=== PATIENT | male | born 1990 ===

== ENCOUNTER 2016-10-16 11:11 | Emergency (ER) | payer MEDICAID ==
[2016-10-16 11:13] VITALS: TEMP 98.6; BMI 22.3
[2016-10-16 11:48] VITALS: PULSE 82
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
--- NOTE | 2016-10-16 12:26 | ED PDOC ---
Lower Extremity Pain/Injury Time Seen by Provider: 10/16/16 11:22 Chief Complaint (Nursing): Lower Extremity Problem/Injury Chief Complaint (Provider): RIGHT ANKLE PAIN History Per: Patient (26 Y/O MALE WITH RECENT ORIF YESTERDAY AND D/C WITH VICODIN/ASA. PATIENT STATES NERVE BLOCK WORE OFF HAS HAD EXCRUCIATING PAIN. TOOK VICODIN/ASA PRIOR 1 HOUR PRIOR TO ED ARRIVAL.) Past Medical History Reviewed: Historical Data, Nursing Documentation, Vital Signs Vital Signs: Last Vital Signs Temp 98.6 F 10/16/16 11:44 Pulse 82 10/16/16 11:44 Resp 20 10/16/16 11:44 BP 119/65 10/16/16 11:44 Pulse Ox 100 10/16/16 11:44 - Medical History PMH: Denies: Chronic Kidney Disease - Family History Family History: States: Unknown Family Hx - Home Medications Home Medications: Ambulatory Orders Medication Instructions Recorded Aspirin [Adult Low Dose Aspirin EC] 81 mg PO DAILY #60 tablet. 10/15/16 Clindamycin [Cleocin] 300 mg PO Q6 #28 cap 10/15/16 Docusate [Colace] 100 mg PO BID #20 cap 10/16/16 Ondansetron [Zofran Odt] 4 mg PO Q8 PRN #8 odt 10/16/16 - Allergies Allergies/Adverse Reactions: Allergies Allergy/AdvReac Type Severity Reaction Status Date / Time Penicillins Allergy RASH Verified 10/14/16 14:51 Review of Systems ROS Statement: Except As Marked, All Systems Reviewed And Found Negative Physical Exam - Reviewed Nursing Documentation Reviewed: Yes Vital Signs Reviewed: Yes - Physical Exam Appears: Positive for: Well, Non-toxic, No Acute Distress Head Exam: Positive for: ATRAUMATIC, NORMAL INSPECTION, NORMOCEPHALIC Skin: Positive for: Normal Color, Warm, DRY Eye Exam: Positive for: EOMI, Normal appearance, PERRL ENT: Positive for: Normal ENT Inspection Neck: Positive for: Normal, Painless ROM Cardiovascular/Chest: Positive for: Regular Rate, Rhythm Respiratory: Positive for: CNT, Normal Breath Sounds Gastrointestinal/Abdominal: Positive for: Normal Exam, Bowel Sounds, Soft Back: Positive for: Normal Inspection Extremity: Positive for: Normal ROM, Other (PATIENT IN POSTERIOR SPLINT. ABLE TO MOVES TOES; GOOD CAPILLARY REFILL) Neurologic/Psych: Positive for: Alert, Oriented - ECG O2 Sat by Pulse Oximetry: 100 - Progress ED Course And Treament: D/W PODIATRY RESIDENT. SPLINT ADJUSTED IN ED. PATIENT TO BE D/C HOME CONTINUE ON VICODIN Disposition - Clinical Impression Clinical Impression: Ankle fracture - Patient ED Disposition Is Patient to be Admitted: No - Disposition Disposition: Routine/Home Disposition Time: 13:54 Condition: FAIR Prescriptions: Docusate [Colace] 100 mg PO BID #20 cap Ondansetron [Zofran Odt] 4 mg PO Q8 PRN #8 odt PRN Reason: Nausea/Vomiting Instructions: Ankle Fracture (ED)
[2016-10-16 14:32] VITALS: BP 118/58; RESP 18; O2SAT 99
== END 2016-10-16 14:32 | disposition home or self-care (01) ==
LOC: H.ER 11:11
DX: M25.571 Pain in right ankle and joints of right foot (principal)

== ENCOUNTER 2017-06-08 19:55 | Emergency (ER) | payer SELFPAY ==
[2017-06-08 19:56] VITALS: BMI 22.3
[2017-06-08 20:17] VITALS: BP 110/64; PULSE 78; RESP 16; TEMP 97.5; O2SAT 99
--- NOTE | 2017-06-08 20:18 | ED PDOC ---
HPI: Abdomen Time Seen by Provider: 06/08/17 20:08 Chief Complaint (Nursing): GI Problem Chief Complaint (Provider): vomiting History Per: Patient Additional Complaint(s): 26 yo male, denies any PMH, presents to ED with complaints of vomiting since this am. Pt admits to drinking heavily yesterday, till about 4 am. Denies fever , diarrhea. Past Medical History Reviewed: Nursing Documentation, Vital Signs Vital Signs: Last Vital Signs Temp 97.5 F L 06/08/17 20:07 Pulse 78 06/08/17 20:07 Resp 16 06/08/17 20:07 BP 110/64 06/08/17 20:07 Pulse Ox 99 06/08/17 21:02 - Medical History PMH: Denies: Chronic Kidney Disease Other PMH: WPW s/p Ablation - Surgical History Other surgeries: wrist and ankle ORIF - Family History Family History: States: Unknown Family Hx - Living Arrangements Living Arrangements: With Family - Social History Current smoker - smoking cessation education provided: No Alcohol: Social Drugs: Denies - Home Medications Home Medications: Ambulatory Orders Medication Instructions Recorded Aspirin [Adult Low Dose Aspirin EC] 81 mg PO DAILY #60 tablet. 10/15/16 Clindamycin [Cleocin] 300 mg PO Q6 #28 cap 10/15/16 Docusate [Colace] 100 mg PO BID #20 cap 10/16/16 Ondansetron [Zofran Odt] 4 mg PO Q8 PRN #8 odt 10/16/16 Ondansetron ODT [Zofran ODT] 4 mg PO Q6 PRN #10 odt 06/08/17 - Allergies Allergies/Adverse Reactions: Allergies Allergy/AdvReac Type Severity Reaction Status Date / Time Penicillins Allergy RASH Verified 06/08/17 20:06 Review of Systems ROS Statement: Except As Marked, All Systems Reviewed And Found Negative Gastrointestinal: Positive for: Nausea, Vomiting, Abdominal Pain Physical Exam - Reviewed Nursing Documentation Reviewed: Yes Vital Signs Reviewed: Yes - Physical Exam Appears: Positive for: Well, Non-toxic, No Acute Distress Head Exam: Positive for: ATRAUMATIC, NORMAL INSPECTION, NORMOCEPHALIC Skin: Positive for: Normal Color, Warm, DRY Eye Exam: Positive for: EOMI, Normal appearance, PERRL ENT: Positive for: Normal ENT Inspection Neck: Positive for: Normal, Painless ROM Cardiovascular/Chest: Positive for: Regular Rate, Rhythm Respiratory: Positive for: CNT, Normal Breath Sounds Gastrointestinal/Abdominal: Positive for: Normal Exam, Bowel Sounds, Soft Back: Positive for: Normal Inspection Extremity: Positive for: Normal ROM Neurologic/Psych: Positive for: Alert, Oriented - Laboratory Results Result Diagrams: 06/08/17 21:08 06/08/17 21:08 - ECG O2 Sat by Pulse Oximetry: 99 Medical Decision Making Medical Decision Making: IV access established and treatment initiated with IVF and Zofran Diagnostics ordered labs resulted and reviewed with pt who demonstrated full understanding Supportive care methods discussed after Pt tolerated Po and reported feeling better, asking ot leave Disposition - Clinical Impression Clinical Impression: Hangover effect - Patient ED Disposition Is Patient to be Admitted: No - Disposition Disposition: Routine/Home Disposition Time: 23:58 Condition: STABLE Prescriptions: Ondansetron ODT [Zofran ODT] 4 mg PO Q6 PRN #10 odt PRN Reason: Nausea/Vomiting Instructions: Acute Nausea and Vomiting (ED) Forms: [employer] ([place]an)
[2017-06-08] MEDS ORDERED: Sodium Chloride 0.9% 1,000 ML IV STA (20:20)
[2017-06-08 21:19] LABS: BASO # 0.1 K/uL (0.0-0.2); BASO % 0.5 % (0.0-2.0); HEMATOCRIT 44.2 % (35.0-51.0); LYMPH % 7.6 % (20.0-40.0); MEAN CELL VOLUME 86.1 fl (80.0-94.0); MEAN CORPUSCULAR HEMOGLOBIN 28.9 pg (27.0-31.0); MEAN CORPUSCULAR HGB CONC 33.5 g/dL (33.0-37.0); MEAN PLATELET VOLUME 7.3 fl (7.2-11.7); MONO # 0.5 K/uL (0.0-0.8); MONO % 3.8 % (0.0-10.0); NEUT # 11.3 K/uL (1.8-7.0); NEUT % 88.1 % (50.0-75.0); NRBC % 0.1 % (0.0-0.0); PLATELET COUNT 314 K/uL (130-400); WHITE BLOOD COUNT 12.8 K/uL (4.8-10.8)
[2017-06-08 21:25] LABS: SODIUM 144 mmol/l (132-148)
[2017-06-08 21:33] LABS: ALB/GLOB RATIO 1.3 (1.0-2.1); ALCOHOL SERUM < 10 mg/dl (0-10); ALKALINE PHOSPHATASE 82 U/L (38-126); ALT/SGPT 37 U/L (21-72); AMYLASE 149 U/L (30-110); AST/SGOT 25 U/L (17-59); BILIRUBIN,TOTAL 0.9 mg/dl (0.2-1.3); BLOOD UREA NITROGEN 12 mg/dl (9-20); CALCIUM 9.6 mg/dL (8.4-10.2); CARBON DIOXIDE 25 mmol/L (22-30); CHLORIDE 107 mmol/L (98-107); GFR AFRICAN-AMERICAN > 60; GLUCOSE,RANDOM 96 mg/dL (75-110); LIPASE 20 U/L (23-300); POTASSIUM 4.3 MMOL/L (3.6-5.0); TOTAL PROTEIN 8.2 G/DL (6.3-8.2)
[2017-06-08 21:57] LABS: NEUTROPHIL 88 % (42-75); TOTAL CELLS COUNTED 100
[2017-06-08 23:56] LABS: RBC URINE 4 /hpf (0-3); URINE BACTERIA RARE (<OCC); URINE BILIRUBIN NEGATIVE (NEGATIVE); URINE COLOR YELLOW (YELLOW); URINE GLUCOSE (UA) NEG (Normal); URINE KETONE NEGATIVE (NEGATIVE); URINE LEUKOCYTE ESTERASE NEG Leu/uL (Negative); URINE PROTEIN 100 mg/dL (NEGATIVE); URINE UROBILINOGEN 0.2-1.0 mg/dL (0.2-1.0); WBC URINE 1 /hpf (0-5)
[2017-06-08 23:57] LABS: URINE BLOOD SMALL (NEGATIVE)
== END 2017-06-09 00:01 | disposition home or self-care (01) ==
LOC: H.ER 19:55
DX: R11.2 Nausea with vomiting, unspecified (principal); R10.9 Unspecified abdominal pain; Z88.0 Allergy status to penicillin
CPT/HCPCS: 80053; 81003; 82150; 83690; 85025; 96361; 96374; 99284; G0480; J2405; J7040

== ENCOUNTER 2017-11-03 15:37 | Emergency (ER) | payer MEDICAID ==
[2017-11-03 15:37] VITALS: BMI 22.3
[2017-11-03 15:51] VITALS: TEMP 98
[2017-11-03] MEDS ORDERED: Sodium Chloride 0.9% 1,000 ML IV STA (17:04)
--- NOTE | 2017-11-03 17:08 | ED PDOC ---
HPI: General Adult Time Seen by Provider: 11/03/17 16:06 Chief Complaint (Nursing): Abdominal Pain Chief Complaint (Provider): "dehydration after drinking too much" History Per: Patient History/Exam Limitations: no limitations Onset/Duration Of Symptoms: Hrs Have you had recent travel within the past 21 days to any of the following countries: [place], [place], [place] or [place]?: No Current Symptoms Are (Timing): Better Additional Complaint(s): 27 yo male comes to ER for "dehydration" after drinking too much last night. Pt states that he was nauseous and vomiting this morning. Denies abdominal pain. Pt has been seen numerous times in ER for same. Past Medical History Reviewed: Historical Data, Nursing Documentation, Vital Signs Vital Signs: Last Vital Signs Temp 98 F 11/03/17 15:48 Pulse 74 11/03/17 15:48 Resp 20 11/03/17 15:48 BP Pulse Ox 98 11/03/17 15:48 - Medical History PMH: Fractures (Left wrist and Right Ankle) Denies: Chronic Kidney Disease - Family History Family History: States: Unknown Family Hx - Home Medications Home Medications: Ambulatory Orders Medication Instructions Recorded Aspirin [Adult Low Dose Aspirin EC] 81 mg PO DAILY #60 tablet. 10/15/16 Clindamycin [Cleocin] 300 mg PO Q6 #28 cap 10/15/16 Docusate [Colace] 100 mg PO BID #20 cap 10/16/16 Ondansetron [Zofran Odt] 4 mg PO Q8 PRN #8 odt 10/16/16 Ondansetron ODT [Zofran ODT] 4 mg PO Q6 PRN #10 odt 06/08/17 Ondansetron ODT [Zofran ODT] 4 mg PO QID #20 odt 11/03/17 - Allergies Allergies/Adverse Reactions: Allergies Allergy/AdvReac Type Severity Reaction Status Date / Time Penicillins Allergy RASH Verified 11/03/17 15:48 Review of Systems ROS Statement: Except As Marked, All Systems Reviewed And Found Negative Constitutional: Negative for: Fever, Chills Gastrointestinal: Positive for: Nausea, Vomiting. Negative for: Abdominal Pain , Diarrhea Physical Exam - Reviewed Nursing Documentation Reviewed: Yes Vital Signs Reviewed: Yes - Physical Exam Appears: Positive for: Well, Non-toxic, No Acute Distress Head Exam: Positive for: ATRAUMATIC, NORMAL INSPECTION, NORMOCEPHALIC Skin: Positive for: Normal Color, Warm, DRY Eye Exam: Positive for: EOMI, Normal appearance, PERRL ENT: Positive for: Normal ENT Inspection Neck: Positive for: Normal, Painless ROM Cardiovascular/Chest: Positive for: Regular Rate, Rhythm Respiratory: Positive for: CNT, Normal Breath Sounds Gastrointestinal/Abdominal: Positive for: Normal Exam, Soft. Negative for: Tenderness Back: Positive for: Normal Inspection Extremity: Positive for: Normal ROM Neurologic/Psych: Positive for: Alert, Oriented - ECG O2 Sat by Pulse Oximetry: 98 Medical Decision Making Medical Decision Making: PO zofran given in ER/ PT tolerated fluids. Disposition - Clinical Impression Clinical Impression: Hangover without complication - Patient ED Disposition Is Patient to be Admitted: No Counseled Patient/Family Regarding: Diagnosis, Need For Followup, Rx Given - Disposition Disposition: Routine/Home Disposition Time: 17:07 Condition: STABLE Prescriptions: Ondansetron ODT [Zofran ODT] 4 mg PO QID #20 odt Instructions: Effects of Alcohol on Your Health
[2017-11-03 18:13] VITALS: BP 123/72; PULSE 81; RESP 19; O2SAT 100
== END 2017-11-03 18:17 | disposition home or self-care (01) ==
LOC: H.ER 15:37
DX: F10.129 Alcohol abuse with intoxication, unspecified (principal); Z79.82 Long term (current) use of aspirin; Z88.0 Allergy status to penicillin

== ENCOUNTER 2018-03-11 14:35 | Emergency (ER) | payer MEDICAID, OTHER ==
[2018-03-11 14:35] VITALS: BMI 22.3
[2018-03-11 14:49] VITALS: O2SAT 97
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
--- NOTE | 2018-03-11 16:43 | RAD ---
Date of service: 03/11/2018 HISTORY: LEFT sided rhonchi weakness cough COMPARISON: 07/03/2015 TECHNIQUE: Chest PA and lateral FINDINGS: LUNGS: No active pulmonary disease. PLEURA: No significant pleural effusion identified. No pneumothorax apparent. CARDIOVASCULAR: Normal. OSSEOUS STRUCTURES: No significant abnormalities. VISUALIZED UPPER ABDOMEN: Normal. OTHER FINDINGS: None. IMPRESSION: No active disease. No interval pathology.
[2018-03-11 17:03] LABS: BASO # 0.1 K/uL (0.0-0.2); BASO % 0.4 % (0.0-2.0); EOS # 0.1 K/uL (0.0-0.7); EOS % 0.8 % (0.0-4.0); HEMOGLOBIN 16.3 g/dL (12.0-18.0); LYMPH # 3.2 K/uL (1.0-4.3); LYMPH % 25.4 % (20.0-40.0); MEAN CELL VOLUME 87.2 fl (80.0-94.0); MEAN CORPUSCULAR HGB CONC 34.4 g/dL (33.0-37.0); MEAN PLATELET VOLUME 7.3 fl (7.2-11.7); NEUT # 8.3 K/uL (1.8-7.0); NEUT % 65.4 % (50.0-75.0); RBC 5.45 Mil/uL (4.40-5.90); RED CELL DISTRIBUTION WIDTH 13.3 % (11.5-14.5); WHITE BLOOD COUNT 12.7 K/uL (4.8-10.8)
[2018-03-11 17:15] LABS: ALB/GLOB RATIO 1.1 (1.0-2.1); ALBUMIN 4.6 g/dL (3.5-5.0); ALT/SGPT 26 U/L (21-72); AST/SGOT 22 U/L (17-59); BLOOD UREA NITROGEN 13 mg/dl (9-20); CALCIUM 10.1 mg/dL (8.4-10.2); GFR NON-AFRICAN AMERICAN > 60
[2018-03-11 19:42] VITALS: BP 126/79; PULSE 76; RESP 18; TEMP 98.8
== END 2018-03-11 19:16 | disposition home or self-care (01) ==
LOC: H.ER 14:35
DX: J40 Bronchitis, not specified as acute or chronic (principal); F17.200 Nicotine dependence, unspecified, uncomplicated; Z79.82 Long term (current) use of aspirin; Z79.899 Other long term (current) drug therapy; Z88.0 Allergy status to penicillin

== ENCOUNTER 2018-06-12 20:30 | Emergency (ER) | payer MEDICAID, OTHER ==
[2018-06-12 20:30] VITALS: BMI 22.3
[2018-06-12 22:42] VITALS: BP 124/72; PULSE 83; RESP 16; TEMP 98.5; O2SAT 99
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
== END 2018-06-12 23:12 | disposition home or self-care (01) ==
LOC: H.ER 20:30
DX: J02.9 Acute pharyngitis, unspecified (principal); Z11.3 Encounter for screening for infections with a predominantly sexual mode of transmission; Z79.82 Long term (current) use of aspirin; Z88.0 Allergy status to penicillin

== ENCOUNTER 2018-09-28 00:22 | Emergency (ER) | payer MEDICAID ==
[2018-09-28 00:22] VITALS: BMI 22.3
[2018-09-28 00:58] VITALS: O2SAT 98
--- NOTE | 2018-09-28 02:46 | ED PDOC ---
HPI: Influenza Time Seen by Provider: 09/28/18 02:01 Chief Complaint: Fever Chief Complaint (Provider): sneezing, cough, runny nose, fever History Per: Patient Exam Limitations: no limitations Additional complaint(s):: 28 y/o M with hx of Berman Parkinson White syndrome s/p ablation at age 15 who presents with flu-like symptoms. Pt states that he began sneezing, having nasal congestion, cough and subjective fever with chills last night. He has not taken any medication for fever. Denies SOB, N/V, diarrhea, sore throat or ear pain. + VELASCO. is being seen in ED for similar symptoms and tested + for Influenza. Past Medical History Reviewed: Historical Data, Nursing Documentation, Vital Signs Vital Signs: Last Vital Signs Temp 99.7 F H 09/28/18 00:54 Pulse 73 09/28/18 00:54 Resp 16 09/28/18 00:54 BP 120/80 09/28/18 00:54 Pulse Ox 98 09/28/18 00:54 - Medical History PMH: Fractures (Left wrist and Right Ankle) Denies: Chronic Kidney Disease Other PMH: WPW s/p ablation - Surgical History Other surgeries: ablation for WPW at age 15 - Family History Family History: States: Unknown Family Hx - Immunization History Hx Tetanus Toxoid Vaccination: No Hx Influenza Vaccination: No Hx Pneumococcal Vaccination: No - Home Medications Home Medications: Ambulatory Orders Medication Instructions Recorded Aspirin [Adult Low Dose Aspirin EC] 81 mg PO DAILY #60 tablet. 10/15/16 Clindamycin [Cleocin] 300 mg PO Q6 #28 cap 10/15/16 Docusate [Colace] 100 mg PO BID #20 cap 10/16/16 Ondansetron [Zofran Odt] 4 mg PO Q8 PRN #8 odt 10/16/16 Ondansetron ODT [Zofran ODT] 4 mg PO Q6 PRN #10 odt 06/08/17 Ondansetron ODT [Zofran ODT] 4 mg PO QID #20 odt 11/03/17 Albuterol HFA [Ventolin HFA 90 2 puff IH Q4H PRN #1 inh 03/11/18 mcg/actuation (8 g)] Azithromycin [Zithromax] 250 mg PO DAILY #6 dose 03/11/18 Ibuprofen [Motrin Tab] 600 mg PO Q6 PRN 7 Days tab 09/28/18 Oseltamivir Phosphate [Tamiflu] 75 mg PO BID #9 capsule 09/28/18 - Allergies Allergies/Adverse Reactions: Allergies Allergy/AdvReac Type Severity Reaction Status Date / Time Penicillins Allergy RASH Verified 06/18/18 15:17 Review of Systems Constitutional: Positive for: Fever, Chills Physical Exam - Reviewed Nursing Documentation Reviewed: Yes Vital Signs Reviewed: Yes - Physical Exam Appears: Positive for: No Acute Distress Skin: Positive for: Normal Color ENT: Positive for: Normal ENT Inspection Cardiovascular/Chest: Positive for: Regular Rate, Rhythm Respiratory: Positive for: Normal Breath Sounds Lymphatic: Positive for: Normal Exam Neurological/Psych: Positive for: Awake, Alert, Oriented Medical Decision Making Medical Decision Making: Tamiflu 75mg PO x 1 Patient advised that will be treated empirically for Influenza. Risk and benefits of Tamiflu discussed and patient agrees to Tamiflu. Advised to stay hyd rated and take Tylenol/Ibuprofen for fevers and body aches/headaches. - ECG O2 Sat by Pulse Oximetry: 98 Disposition - Clinical Impression Clinical Impression: Influenza - Patient ED Disposition Is Patient to be Admitted: No - Disposition Referrals: Choco Bullock MD [Primary Care Provider] - Disposition: Routine/Home Disposition Time: 02:45 Condition: STABLE Additional Instructions: Follow up with your primary care doctor as needed for persistent symptoms. Take Tylenol or Ibuprofen for pain and fevers. Return to ER if you develop worsening symptoms. You are highly contagious so avoid close contact with others. Get lots of rest and drink plenty of fluids. Prescriptions: Ibuprofen [Motrin Tab] 600 mg PO Q6 PRN 7 Days tab PRN Reason: Fever >100.4 F Oseltamivir Phosphate [Tamiflu] 75 mg PO BID #9 capsule Instructions: Flu, Adult (DC) Forms: [employer] (Telugu) Print Language: [place]
[2018-09-29 08:55] VITALS: BP 119/63; PULSE 67; RESP 20; TEMP 98.9
== END 2018-09-28 02:55 | disposition home or self-care (01) ==
LOC: H.ER 00:22
DX: J11.1 Influenza due to unidentified influenza virus with other respiratory manifestations (principal)